=== PATIENT | female | born 1985 | race Hispanic/Latino ===

== ENCOUNTER 2019-07-12 15:05 | Emergency (ER) | payer OTHER, SELFPAY ==
--- NOTE | 2019-07-12 16:34 | RAD REPORT ---
EXAM DESCRIPTION: RAD - Humerus Left - 07/12/2019 4:11 pm CLINICAL HISTORY: Left arm pain FINDINGS: No fracture is seen
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
--- NOTE | 2019-07-12 16:42 | RAD REPORT ---
EXAM DESCRIPTION: Alok Ingram (2 Views)07/12/2019 4:09 pm CLINICAL HISTORY: Chest pain COMPARISON: none FINDINGS: The lungs appear clear of acute infiltrate. The heart is normal size IMPRESSION: No acute abnormalities displayed
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
[2019-07-12] MEDS ORDERED: HYDROCODONE/APAP 5/325 MG TAB ONE (17:14)
[2019-07-12] MEDS ORDERED: DIAZEPAM 5 MG TABLET ONE (17:15)
[2019-07-12 17:33] VITALS: O2SAT 100
[2019-07-12 17:34] VITALS: BP 122/78; TEMP 98.3
== END 2019-07-12 17:23 | disposition home or self-care (01) ==
LOC: ER 15:05
DX: M25.512 Pain in left shoulder (principal); V59.40XA Driver of pick-up truck or van injured in collision with unspecified motor vehicles in traffic accident, initial encounter
CPT/HCPCS: 70450; 71046; 72125